=== PATIENT | male | born 1980 | race Caucasian/White ===

== ENCOUNTER 2017-11-02 03:16 | Emergency (ER) | payer MEDICAID ==
[~2017-11-02] VITALS: Ht 175.3 cm; Wt 81.6 kg
[2017-11-02 03:19] VITALS: BP 143/86
== END 2017-11-02 07:20 | disposition left against medical advice (07) ==
LOC: ER 03:16 → EDBD 03:16 → ER 07:20
DX: R10.84 Generalized abdominal pain (principal); R07.81 Pleurodynia; Z53.21 Procedure and treatment not carried out due to patient leaving prior to being seen by health care provider
CPT/HCPCS: 71111